=== PATIENT | male | born 1980 | race Caucasian/White ===

== ENCOUNTER 2024-08-12 03:24 | Emergency (ER) | payer BC ==
[2024-08-12] MEDS ORDERED: Sodium Chloride 0.9% 20 ML SDV IV PRN (03:37)
[2024-08-12 03:52] LABS: BASOPHILS ABSOLUTE AUTO 0.06 K/uL (0.00-0.20); BASOPHILS PERCENT AUTO 0.4 % (0.0-1.0); EOSINOPHILS ABSOLUTE AUTO 0.27 K/uL (0.00-0.45); EOSINOPHILS PERCENT AUTO 1.7 % (0.0-6.0); HEMATOCRIT 40.3 % (42.0-52.0); HEMOGLOBIN 13.9 g/dL (14.0-18.0); IMMATURE GRAN ABSOLUTE AUTO 0.04 K/uL (0.00-0.05); IMMATURE GRAN PERCENT AUTO 0.2 % (0.0-0.4); LYMPHOCYTES ABSOLUTE AUTO 2.39 K/uL (1.00-4.80); LYMPHOCYTES PERCENT AUTO 14.8 % (24.0-44.0); MEAN CORPUSCULAR HEMOGLOBIN 29.4 pg (28.0-32.0); MEAN CORPUSCULAR HGB CONC 34.5 g/dL (32.0-36.0); MEAN CORPUSCULAR VOLUME 85.2 fL (83.0-99.0); MEAN PLATELET VOLUME 8.8 fL (9.4-12.4); MONOCYTES ABSOLUTE AUTO 0.99 K/uL (0.00-0.80); MONOCYTES PERCENT AUTO 6.1 % (0.0-8.0); NEUTROPHILS ABSOLUTE AUTO 12.38 K/uL (1.80-7.70); NEUTROPHILS PERCENT AUTO 76.8 % (41.0-71.0); PLATELET COUNT,PLT 276 K/uL (150-400); RED BLOOD CELL COUNT 4.73 M/uL (4.52-5.90); WHITE BLOOD CELL COUNT,WBC 16.13 K/uL (3.9-11.3)
[2024-08-12] MEDS: Sodium Chloride 0.9% 10 ML Syringe FLUSH PRN (03:54)
[2024-08-12] MEDS: Morphine 4 MG/ML Syringe IVPUSH ONE (03:55)
[2024-08-12] MEDS: Sodium Chloride 0.9% 2.5 ML Syringe FLUSH PRN (03:55)
[2024-08-12] MEDS: Sodium Chloride 0.9% 1,000 ML IV ONE (04:12)
[2024-08-12] MEDS: Ondansetron 4 MG/2 ML SDV IVPUSH ONE (04:17)
[2024-08-12 04:28] LABS: CARBON DIOXIDE,CO2 28.8 mmol/L (21.0-32.0); CREATININE 1.3 mg/dL (0.8-1.3); EST CRCL DRUG DOSING (CG) 66.8 mL/min; POTASSIUM,K 3.9 mmol/L (3.5-5.1)
[2024-08-12] MEDS: Ketorolac 30 MG/ML SDV IM ONE (04:48)
[2024-08-12] MEDS: Ketorolac 30 MG/ML SDV IVPUSH ONE (04:57)
[2024-08-12 07:09] VITALS: BP 126/78; PULSE 76
== END 2024-08-12 07:07 | disposition home or self-care (01) ==
LOC: MW.ED 03:24
DX: R07.9 Chest pain, unspecified (principal); Z88.0 Allergy status to penicillin
CPT/HCPCS: 36415; 71046; 80048; 84484; 85025; 85652; 86140; 93005; 96374; 96375; 99285; J1100; J1885; J2270; J7030; J3490